=== PATIENT | female | born 1975 | race Caucasian/White ===

== ENCOUNTER 2018-12-13 14:55 | Emergency (ER) | payer OTHER ==
[~2018-12-13] VITALS: Ht 157.5 cm; Wt 63.0 kg
[2018-12-13] MEDS ORDERED: LISINOPRIL20 MG PO (15:10)
[2018-12-13] MEDS ORDERED: CYMBALTA30 MG PO (15:10)
[2018-12-13 15:19] LABS: URINE BILIRUBIN NEGATIVE (Negative); URINE BLOOD TRACE (Negative); URINE CLARITY CLEAR; URINE COLOR YELLOW; URINE GLUCOSE-RANDOM NEGATIVE (Negative); URINE KETONES 1+ (Negative); URINE LEUKOCYTES-REFLEX NEGATIVE (Negative); URINE NITRITE-REFLEX NEGATIVE (Negative); URINE PROTEIN NEGATIVE (Negative); URINE SPECIFIC GRAVITY 1.015 (1.005-1.030); URINE UROBILINOGEN 0.2 E.U./dl (0.2-1.0)
[2018-12-13 15:32] LABS: ABSOLUTE BASOPHILS 0.1 thou/uL (0.0-0.2); ABSOLUTE EOSINOPHILS 0.1 thou/uL (0.0-0.7); ABSOLUTE MONOCYTES 0.6 thou/uL (0.0-1.2); ABSOLUTE NEUTROPHILS 4.3 thou/uL (1.6-8.1); BASOPHILS 0.9 %; EOSINOPHILS 1.3 %; HEMATOCRIT 38.4 % (37.0-47.0); HEMOGLOBIN 13.5 gm/dL (12.0-15.0); LYMPHOCYTES 28.9 %; MCH 31.4 pg (26.0-34.0); MCHC 35.1 g/dL (28.0-37.0); MCV 89.6 fL (80.0-100.0); NUCLEATED RBCS 0 /100WBC; PLATELET COUNT* 421 thou/uL (150-400); POLYS 60.9 %; RBC 4.29 mil/uL (4.20-5.00); RDW-CV 13.4 % (10.5-14.5)
[2018-12-13 15:43] LABS: ANION GAP 15 mmol/L (7-16); BUN 17 mg/dL (7-18); CALCIUM 8.9 mg/dL (8.5-10.1); CHLORIDE 100 mmol/L (98-107); CO2 22 mmol/L (21-32); CREATININE 0.9 mg/dL (0.6-1.3); GLUCOSE 79 mg/dL (70-99); POTASSIUM 4.2 mmol/L (3.5-5.1); SODIUM 137 mmol/L (136-145)
[2018-12-13 15:52] LABS: ALBUMIN 4.5 g/dL (3.4-5.0); ALKALINE PHOSPHATASE 39 U/L (46-116); LIPASE 141 U/L (73-393); SGOT 14 U/L (15-37); SGPT 30 U/L (30-65); TOTAL BILIRUBIN 1.2 mg/dL (<0.1-1.0); TOTAL PROTEIN 8.1 g/dL (6.4-8.2); TROPONIN-I LEVEL <0.06 ng/mL (<0.06)
[2018-12-13] MEDS ORDERED: ACIPHEX 20 MG T20 MG PO (16:48)
[2018-12-13 17:04] VITALS: BP 127/67
--- NOTE | 2018-12-14 10:46 | EKG ---
[place] [address] ELECTROCARDIOGRAM REPORT Name: IZABALA Early Room: [facility]#: [id number] Admission: 12/13/18 Attend Phys: Discharge: 12/13/18 Date of : 73 Report #: [id number] THIS REPORT FOR: //name// [facility] ED Test Date: 2018-12-13 Test Time: 16:09:35 Pat Name: BALA COUCH Department: Room: Gender: F [employer]ator: [facility] : 1975 Requested By: Rashard Lomeli Order Number: [id number] MD: Dickson Vigil Measurements Intervals [place] Rate: 91 P: 52 TX: 115 QRS: 54 QRSD: 93 T: 54 QT: 378 QTc: 466 Interpretive Statements Sinus rhythm Borderline short [place] interval Compared to ECG 02/22/2007 13:12:26 No significant changes Electronically Signed On 12-14-2018 10:46:15 CDT by Dickson Vigil [email or web address] <ELECTRONICALLY SIGNED> By: Dickson Vigil MD, [facility] 12/14/18 1046 D: 09/9 1609 Dickson Vigil MD, FACC /EPI
== END 2018-12-13 17:07 | disposition home or self-care (01) ==
LOC: M.ERS 14:55
PROVIDERS: Emergency Medicine
DX: K21.9 Gastro-esophageal reflux disease without esophagitis (principal); R10.13 Epigastric pain; R10.11 Right upper quadrant pain; Z98.51 Tubal ligation status